=== PATIENT | male | born 1965 | race Asian ===

== ENCOUNTER 2017-09-08 22:10 | Emergency (ER) | payer OTHER ==
[~2017-09-08] VITALS: Ht 165.1 cm; Wt 74.4 kg
[2017-09-08 22:19] VITALS: BP 141/85
[2017-09-08 23:01] LABS: APPEARANCE,URINE CLOUDY (CLEAR); BILIRUBIN,URINE NEGATIVE (NEGATIVE); BLOOD, URINE 3+ Ery/uL (NEGATIVE); COLOR,URINE YELLOW (YELLOW); KETONES,URINE NEGATIVE (NEGATIVE); LEUKOCYTE ESTERASE ,URINE 2+ (NEGATIVE); NITRITE, URINE POSITIVE (NEGATIVE); PH,URINE 5.5 (5.0-8.0); PROTEIN,URINE 2+ mg/dl (NEGATIVE); UGLUCOSE NEGATIVE (NEGATIVE); UROBILINOGEN,URINE 0.2 EU/dL (0.2)
[2017-09-08 23:06] LABS: BACTERIA,URINE Few /HPF (None Seen); RBC,URINE 21-50 /HPF (0-2); SQUAMOUS EPITHELIAL CELL,UR Few /HPF (None Seen); WBC,URINE 81-100 /HPF (0-3)
== END 2017-09-08 23:27 | disposition home or self-care (01) ==
LOC: ER 22:16
DX: N39.0 Urinary tract infection, site not specified (principal)
CPT/HCPCS: 81000-TC; 87086-TC; 87186-TC; A4606; Z7610

== ENCOUNTER 2022-01-05 12:55 | Emergency (ER) | payer OTHER ==
[~2022-01-05] VITALS: Ht 165.1 cm; Wt 72.6 kg
[2022-01-05 13:08] VITALS: BP 141/84
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
[2022-01-05] MEDS ORDERED: CYCL5TAB PO (14:23)
[2022-01-05] MEDS ORDERED: IBUP-1955 PO (14:23)
[2022-01-05] MEDS ORDERED: KETOROLAC TROMETHAMINE INJ 30 MG/ML VIAL IM ONE (14:30)
[2022-01-05] MEDS ORDERED: KETOROLAC TROMETHAMINE 15 MG/ML VIAL ONE (14:36)
--- NOTE | 2022-01-05 14:40 | NUR ---
Patient discharged to home in stable condition. Written and verbal after care instructions given. Patient verbalizes understanding of instruction.
== END 2022-01-05 14:40 | disposition home or self-care (01) ==
LOC: ER 12:59
DX: S16.1XXA Strain of muscle, fascia and tendon at neck level, initial encounter (principal); M79.10 Myalgia, unspecified site; V49.60XA Unspecified car occupant injured in collision with unspecified motor vehicles in traffic accident, initial encounter; Y93.89 Activity, other specified; Y92.89 Other specified places as the place of occurrence of the external cause; Y99.8 Other external cause status
CPT/HCPCS: 96372; 99283; A6403; J1885